=== PATIENT | male | born 1970 | race Caucasian/White ===

== ENCOUNTER → 2023-06-13 16:32 | Outpatient (CLI) | payer MEDICAID, SELFPAY ==
[2023-06-13 16:34] LABS: Alanine Aminotransferase 41 U/L (12-78); Albumin Level 4.5 g/dl (3.5-5.0); Albumin/Globulin Ratio 1.3 (1.1-1.8); Alkaline Phosphatase 128 U/L (38-126); Anion Gap 15.2 mEq/L (5-15); Aspartate Amino Transferase 36 U/L (17-59); Bilirubin,Total 0.5 mg/dl (0.2-1.3); Blood Urea Nitrogen 11 mg/dl (9-20); Calcium 9.7 mg/dl (8.4-10.2); Carbon Dioxide 23 mmol/L (22.0-30.0); Chloride 105 mmol/L (98-107); Chol/HDL Ratio 8.2 (1-3.5); Cholesterol 247 mg/dl (140-200); Estimated Glomerular Filt Rate 100 ml/min (>60); GFR (African American) 121 ML/MIN (>60); Globulin 3.5 g/dL (1.3-3.2); Glucose 113 mg/dl (74-100); HDL Cholesterol 30 mg/dl (40-60); Potassium 4.2 mmoL/L (3.5-5.1); Sodium 139 mmol/L (136-145); Triglycerides 370 mg/dl (30-150); VLDL Cholesterol 74 mg/dL (0-40)
[2023-06-13 16:37] LABS: Basophils # 0.1 K/mm3 (0-0.2); Basophils % 0.5 % (0.1-2.0); Eosinophils # 0.2 K/mm3 (0.0-0.4); Hematocrit 51.5 % (42.0-52.0); Lymphocytes # 2.8 K/mm3 (0.7-4.5); Lymphocytes % 28.9 % (10-50); Mean Corpuscular HGB Conc 35.3 g/dL (31.8-35.4); Mean Corpuscular Hemoglobin 33.2 pg (27.0-31.2); Mean Corpuscular Volume 94.1 fl (80-94); Mean Platelet Volume 9.6 fl (7.4-10.4); Monocytes # 0.3 K/mm3 (0.1-1.0); Monocytes % 3.6 % (1.7-9.3); Neutrophils # 6.2 K/mm3 (1.8-7.8); Platelet Count 238 K/mm3 (142-424); Red Blood Count 5.48 M/mm3 (4.60-6.20); Red Cell Distribution Width 12.9 % (11.5-17.5); White Blood Count 9.5 K/mm3 (4.8-10.8)
[2023-06-13 16:45] LABS: Direct LDL Cholesterol 142.11 mg/dL (100-129)
[2023-06-13 16:51] LABS: Hemoglobin 18.2 g/dL (14.1-18.0)
[2023-06-13 17:05] LABS: Thyroid Stimulating Hormone 0.86 uIU/mL (0.465-4.68)
== END ==
PROVIDERS: PCP Family Medicine; Visit Provider Family Medicine
DX: Z00.00 Encounter for general adult medical examination without abnormal findings (principal)
CPT/HCPCS: 80053; 80061; 84443; 85025

== ENCOUNTER → 2023-06-23 13:56 | Outpatient (CLI) | payer MEDICAID, SELFPAY ==
--- NOTE | 2023-06-23 13:57 | CA_ITS ---
FINAL REPORT CLINICAL HISTORY: diminished pulses in legs; leg pain,smoker COMPARISON: None FINDINGS: BILATERAL LOWER EXTREMITY DUPLEX DOPPLER Color Doppler and duplex Doppler of the bilateral lower extremity was performed. Spectral analysis was also performed. Velocities were measured at multiple levels. All velocities are in centimeters per second. RIGHT EMAIL MARKETING COORDINATOR: 137 Prof A: 51 Fem A Prox: 87 Fem A Mid: 91 Fem A Dist: 84 Pop A: 69 FIRST COAT OPERATOR Prox: Not obtained FIRST COAT OPERATOR Mid: Not obtained FIRST COAT OPERATOR Dist: 88 [place] Mid: 53 Per A Mid: 51 Waveforms are triphasic and biphasic LEFT EMAIL MARKETING COORDINATOR: 93 Prof A: 55 Fem A Prox: 94 Fem A Mid: 89 Fem A Dist: 91 Pop A: 60 FIRST COAT OPERATOR Prox: 87 FIRST COAT OPERATOR Mid: 96 FIRST COAT OPERATOR Dist: 107 [place] Mid: 51 Per A Mid: 67 Waveforms are triphasic. IMPRESSION: No evidence of significant vascular disease. Reviewed, Interpreted and Dictated by Ricky Adams III, MD Transcribed by Kena Flower Authenticated and [facility]
== END ==
PROVIDERS: PCP Family Medicine; Visit Provider Family Medicine
DX: I73.89 Other specified peripheral vascular diseases (principal); R09.89 Other specified symptoms and signs involving the circulatory and respiratory systems
CPT/HCPCS: 93925

== ENCOUNTER 2024-09-23 16:21 | Emergency (ER) | payer MEDICAID, SELFPAY ==
[2024-09-23] VITALS (14 sets, daily range): BP systolic 113–162; BP diastolic 72–85; PULSE 74–106; RESP 16–28; TEMP 36.6–37.8; O2SAT 87–93; BMI 31.1
[2024-09-23 16:43] LABS: Coronavirus 19, PCR Not Detected (NotDetected); Influenza B, PCR Not Detected (NotDetected)
--- NOTE | 2024-09-23 16:47 | PC.NURSE ---
Dr. Borges at BS for pt eval
--- NOTE | 2024-09-23 16:55 | XR_ITS ---
PROCEDURE INFORMATION: Exam: XR Chest Exam date and time: 09/23/2024 4:56 PM Age: 54 years old Clinical indication: Cough; Additional info: SOA cough, fever TECHNIQUE: Imaging protocol: Radiologic exam of the chest. Views: 2 views. COMPARISON: No relevant prior studies available. FINDINGS: Lungs: Mild linear and patchy opacities at both lung bases. Pleural spaces: Normal. No pleural effusion. No pneumothorax. Heart/Mediastinum: Normal. No cardiomegaly. Bones/joints: Unremarkable. IMPRESSION: Mild linear and patchy opacities at both lung bases could be secondary to atelectasis or pneumonia.
[2024-09-23 17:04] LABS: Lactate Venous 1.9 mmol/L (0.4-2.0); VBG Base Excess -2.5 mmol/L (-2.4-2.3); VBG HCO3 21.8 mmol/L (23-30); VBG Oxygen Saturation 82.6 % (50-70); VBG PCO2 33.6 mmol/L (35-51); VBG PH 7.43 mmol/L (7.31-7.41); VBG PO2 44.6 mmol/L (28-40); VBG Total CO2 22.8 mmol/L (23-27)
[2024-09-23 17:06] LABS: Basophils % 0.1 % (0.1-2.0); Hematocrit 44.2 % (42.0-52.0); Hemoglobin 15.5 g/dL (14.1-18.0); Lymphocytes # 0.7 K/mm3 (0.7-4.5); Lymphocytes % 9.9 % (10-50); Mean Corpuscular HGB Conc 35.1 g/dL (31.8-35.4); Mean Corpuscular Hemoglobin 32.3 pg (27.0-31.2); Mean Corpuscular Volume 92.1 fl (80-94); Mean Platelet Volume 10.8 fl (7.4-10.4); Monocytes # 0.3 K/mm3 (0.1-1.0); Monocytes % 4.8 % (1.7-9.3); Neutrophils # 5.7 K/mm3 (1.8-7.8); Neutrophils % 84.8 % (37.0-80.0); Platelet Count 84 K/mm3 (142-424); Red Cell Distribution Width 12.9 % (11.5-17.5); White Blood Count 6.7 K/mm3 (4.8-10.8)
--- NOTE | 2024-09-23 17:08 | ED_ITS ---
Discharge Plan Disposition Patient Disposition: Home, Self-Care Condition: Good Prescriptions Prescriptions: New prednisone 20 mg tablet 40 mg PO DAILY 5 Days Qty: 10 0RF amoxicillin-pot clavulanate 875-125 mg tablet 1 tab PO BID 5 Days Qty: 10 0RF azithromycin 500 mg tablet 500 mg PO DAILY 2 Days Qty: 2 0RF Rx Instructions: start on day 2 of therapy nicotine 21 mg/24 hr patch 24 hour 1 patch transdermal DAILY Qty: 28 2RF (DME) supplemental oxygen See Rx Instructions .Route .MEDSUPPLY Qty: 1 0RF Rx Instructions: 2 L nasal cannula continuous oxygen at all times while awake and while sleeping. To maintain oxygen saturation 88% or greater. No Action omega 9-rnd-ocu-fish oil [Fish Oil] 60-90-500 mg capsule 1 cap PO DAILY rosuvastatin 10 mg tablet 10 mg PO DAILY Qty: 30 2RF Referrals Follow up/Referrals: Ziggy Lopez MD [Primary Care Provider] - See instructions Activity Restrictions/Add. Instructions Additional Instructions/Restrictions: Call your family doctor to establish care for this visit to the emergency department and schedule follow-up within 48 hours to ensure improvement. If you have any worsening of your condition or any other concerning signs or symptoms, return to the emergency department or your primary care doctor for further evaluation. Azithromycin once daily for the next 2 days. Augmentin twice daily for the next 5 days. Prednisone each morning for the next 5 days. Clinical Impressions Clinical Impression: Acute exacerbation of chronic obstructive pulmonary disease, Influenza A, Pneumonia Print Language Print Language: Syriac Discharge ED Provider: Pito Borges General Adult HPI General Chief complaint: Upper Respiratory Infection Stated complaint: DIFFICULTY BREATHING Time Seen by Provider: 09/23/24 16:34 Mode of Arrival: EMS Source of Information: Patient Limitations: No Limitations Description of Symptoms (Recalled from ER Triage Doc. by RN): pt states he has been sick x2wks after being exposed to the flu. pt c/o a productive cough with yellow sputum, N/V/D, chilling, sweating, SOA, QUILES, lower back pain, and fever. pt states the lower back pain is sore and 1/10. pt states his QUILES is 3/10 and sharp and shooting. pt was at his PCP when his oxygen saturation dropped and EMS was called. on arrival pt was 87% on RA. After placing pt on 3L NC he is 92%. pt denies urinary symptoms, chest pain or abd pain. History of Present Illness HPI narrative: Please note that above description of symptoms, in this electronic medical record under categorization of recalled from ER triage doctor by RN are reflective of an initial nursing assessment, however, is not reflective of my full history and physical exam that was personally taken and clarified. Consequentially, this preceding description of symptoms, which may include the patient's categorized chief complaint in the EMR, do not reflect my personal clinical impression, and the ultimate description of history of present illness and patient stated complaints should be deferred to this section of the note. Unless stated otherwise or congruent with this section of the note, additional signs, symptoms, or incongruence should be interpreted as inaccurate with my clinical impression. Related Data Home Medications ?Medication ?Instructions ?Recorded ?Confirmed omega 8-sba-xiu-fish oil 60 mg-90 1 cap PO DAILY 06/13/23 09/23/24 mg-500 mg capsule (Fish Oil) Previous Rx's ?Medication ?Instructions ?Recorded rosuvastatin 10 mg tablet 10 mg PO DAILY #30 tabs 07/30/23 amoxicillin 875 mg-potassium 1 tab PO BID 5 days #10 tabs 09/23/24 clavulanate 125 mg tablet azithromycin 500 mg tablet 500 mg PO DAILY 2 days #2 tabs 09/23/24 nicotine 21 mg/24 hr daily 1 patch transdermal DAILY #28 ea 09/23/24 transdermal patch prednisone 20 mg tablet 40 mg (2 x 20 mg) PO DAILY 5 days 09/23/24 #10 tabs supplemental oxygen #1 ea 09/23/24 Allergies Allergy/AdvReac Type Severity Reaction Status Date / Time No Known Allergies Allergy Verified 09/23/24 14:50 [facility] Disclaimer: The information contained in this section may have been updated after the patient was seen, as this information can be updated by other users. Medical History Heart attack Asthma Surgical History Hx of cardiac cath Family History Grandfather Heart attack Social History (Reviewed 09/23/24 @ 14:50 by MICHAEL Martinez Smoking Status: Current every day smoker alcohol intake: never substance use type: denies use current occupational status: disabled Travel in the last 8 weeks: None household members: spouse and family housing: house Have you lived/traveled outside US in past 30 days?: No Contact w/someone who lives/traveled outside US past 30 days?: No Exposure to someone with infectious disease in past 14 days?: No Do you have a fever (greater than 100.4 F or 38 C)?: No Have you tested positive for COVID-19: No Exposed to someone with COVID-19 in past 14 days?: No Do you have a sore throat?: No Do you have a cough?: No Do you have any weakness?: No Do you have any diarrhea?: No Are you experiencing any unusual bleeding?: No Do you have any muscle aches/pain?: No Do you have any abdominal pain?: No Are you experiencing loss of taste or smell?: No ROS Obtained: Yes All systems reviewed & no additional complaints except as documented Physical Exam General General appearance: alert and in no apparent distress Head Head exam: atraumatic and normocephalic Eye Eye exam: Present normal appearance, PERRL and EOMI Neck Neck exam: Present trachea midline Chest Chest inspection: Present normal inspection and symmetric chest wall rise Respiratory Respiratory exam: Present wheezes and prolonged expiratory phase; Absent respiratory distress, stridor or accessory muscle use Cardiovascular Cardiovascular exam: Present normal rhythm, tachycardia and other (Pulses equal and symmetric in upper and lower extremities) Abdominal Exam Abdominal exam: Present soft; Absent distention, tenderness or pulsatile mass Extremities Exam Extremities exam: Absent edema Neurological Exam Neurological exam: Present alert, oriented X3, CN II-XII intact and normal gait Skin Skin exam: Present warm and dry; Absent cyanosis, diaphoresis or pallor Medical Decision Making Medical Records Medical records reviewed: Yes I reviewed the patient's medical records. Screening: Per USPSTF and CDC recommendations, given the prevalence of disease in our region, it is our hospital?s policy to screen for HIV and viral Hepatitis for all patients aged 18 and over and those with ongoing risk factors. Cuong Inquiry Pt receiving controlled substance: No Cuong was queried for this patient: No Vital Signs: 09/23/24 16:22 09/23/24 17:00 09/23/24 17:30 Temperature 100.1 F H Temperature Source Oral Pulse Rate 100 H 98 H Pulse Rate [Left] 105 H Respiratory Rate 28 H 23 23 Blood Pressure 150/79 H 134/73 Blood Pressure [Right Arm] 146/75 H Blood Pressure Mean [Right Arm] 98 Blood Pressure Source Blood Pressure Source [Right Arm] Automatic Cuff Blood Pressure Position Blood Pressure Position [Right Arm] Sitting 02 Sat by Pulse Oximetry 87 L 92 L 91 L Oxygen Delivery Method Room Air Nasal Cannula Nasal Cannula Oxygen Flow Rate (LPM) 3 09/23/24 18:03 09/23/24 18:30 09/23/24 19:00 Temperature Temperature Source Pulse Rate 104 H 106 H 105 H Pulse Rate [Left] Respiratory Rate 20 16 Blood Pressure 162/85 H 154/81 H 123/74 Blood Pressure [Right Arm] Blood Pressure Mean [Right Arm] Blood Pressure Source Blood Pressure Source [Right Arm] Blood Pressure Position Blood Pressure Position [Right Arm] 02 Sat by Pulse Oximetry 93 L 93 L 92 L Oxygen Delivery Method Nasal Cannula Nasal Cannula Oxygen Flow Rate (LPM) 09/23/24 19:30 09/23/24 20:00 09/23/24 20:30 Temperature Temperature Source Pulse Rate 102 H 96 H 94 H Pulse Rate [Left] Respiratory Rate Blood Pressure 136/75 121/73 113/77 Blood Pressure [Right Arm] Blood Pressure Mean [Right Arm] Blood Pressure Source Blood Pressure Source [Right Arm] Blood Pressure Position Blood Pressure Position [Right Arm] 02 Sat by Pulse Oximetry 90 L 88 L 90 L Oxygen Delivery Method Oxygen Flow Rate (LPM) 09/23/24 20:45 09/23/24 21:00 09/23/24 21:15 Temperature Temperature Source Pulse Rate 92 H 90 92 H Pulse Rate [Left] Respiratory Rate Blood Pressure 128/77 Blood Pressure [Right Arm] Blood Pressure Mean [Right Arm] Blood Pressure Source Blood Pressure Source [Right Arm] Blood Pressure Position Blood Pressure Position [Right Arm] 02 Sat by Pulse Oximetry 89 L 89 L 87 L Oxygen Delivery Method Oxygen Flow Rate (LPM) 09/23/24 21:30 09/23/24 22:14 Temperature 97.9 F Temperature Source Oral Pulse Rate 91 H 74 Pulse Rate [Left] Respiratory Rate 16 Blood Pressure 117/75 118/72 Blood Pressure [Right Arm] Blood Pressure Mean [Right Arm] Blood Pressure Source Automatic Cuff Blood Pressure Source [Right Arm] Blood Pressure Position Supine Blood Pressure Position [Right Arm] 02 Sat by Pulse Oximetry 90 L Oxygen Delivery Method Room Air Oxygen Flow Rate (LPM) Lab Data Lab Results 09/23/24 16:25: SARS-CoV-2 (PCR) Not detected, Influenza A Untype (PCR) Detected A, Influenza Type B (PCR) Not detected 09/23/24 16:48: WBC 6.7, RBC 4.80, Hgb 15.5, Hct 44.2, MCV 92.1, MCH 32.3 H, MCHC 35.1, RDW 12.9, Plt Count 84 L, MPV 10.8 H, Neut % (Auto) 84.8 H, Lymph % (Auto) 9.9 L, Lawrence % (Auto) 4.8, Eos % (Auto) 0.0 L, Baso % (Auto) 0.1, Neut # (Auto) 5.7, Lymph # (Auto) 0.7, Lawrence # (Auto) 0.3, Eos # (Auto) 0.0, Baso # (Auto) 0.0, PT 9.6, INR 0.86 L, APTT 31.8 H, Sodium 134 L, Potassium 3.4 L, C hloride 97 L, Carbon Dioxide 26, Anion Gap 14.4, BUN 19, Creatinine 1.10, Estimated Creat Clear 99, Estimated GFR 69, Est GFR ( Amer) 84, Glucose 154 H, Calcium 8.7, Total Bilirubin 0.8, AST 62 H, ALT 37, Alkaline Phosphatase 95, Troponin I 0.04 H, NT-Pro-B Natriuret Pep 71.1, Total Protein 7.0, Albumin 3.7, Globulin 3.3 H, Albumin/Globulin Ratio 1.1, HCV Ab MICHAEL w/Rflx PCR Qn Negative, HIV Ag/Ab Combo Qual Negative 09/23/24 16:57: VBG pH 7.43 H, VBG pCO2 33.6 L, VBG pO2 44.6 H, VBG HCO3 21.8 L, VBG Total CO2 22.8 L, VBG O2 Saturation 82.6 H, VBG Base Excess -2.5 L, VBG Lactic Acid 1.9 09/23/24 17:24: Lactate 2.2 H 09/23/24 19:52: Troponin I 0.04 H 09/23/24 16:48 09/23/24 16:48 Orders (Tests/Meds): ED MEDICATIONS Discontinued Medications Generic Name Dose Route Start Last Admin Trade Name Bibiana PRN Reason Stop Dose Admin Albuterol/Ipratropium 9 ml 09/23/24 16:54 09/23/24 17:39 Ipratropium/Albuterol 3 Ml Neb IH 09/23/24 16:55 9 ml ONCE ONE Administration Sodium Chloride 1,000 mls @ 999 mls/hr 09/23/24 16:54 09/23/24 17:38 Sod Chlor 0.9% 1000ml Bag IV 09/23/24 17:54 999 mls/hr .Q1H1M ONE Administration Magnesium Sulfate 2 gm in 50 mls @ 50 mls/hr 09/23/24 16:54 09/23/24 17:39 Magnesium Sulfate 2gm/50ml Premix IV 09/23/24 17:53 50 mls/hr ONCE ONE Administration Ceftriaxone Sodium 2 gm/ 100 mls @ 200 mls/hr 09/23/24 16:57 09/23/24 17:35 Sodium Chloride IV 09/23/24 17:26 200 mls/hr ONCE ONE Administration Azithromycin 500 mg/ Sodium 250 mls @ 250 mls/hr 09/23/24 16:57 09/23/24 18:00 Chloride IV 09/23/24 16:58 250 mls/hr ONCE ONE Administration Methylprednisolone Sodium Succinate 125 mg 09/23/24 16:54 09/23/24 17:39 Methylprednisolone Sod Succ 125mg Vial IV 09/23/24 16:55 125 mg ONCE ONE Administration Nicotine 21 mg 09/23/24 21:30 09/23/24 22:02 Nicotine 21mg/24hr Patch TD 09/23/24 21:31 21 mg ONCE ONE Administration ORDERS Category Date Time Status CXR 2 view (NOT portable) [XR chest 2V] Stat Exams 09/23/24 16:55 Completed Complete Blood Count Auto Diff Stat Lab 09/23/24 16:48 Completed Comprehensive Metabolic Panel Stat Lab 09/23/24 16:48 Completed HIV Combo Stat Lab 09/23/24 16:48 Completed Hepatitis C Ab Qual. W/ RFX Stat Lab 09/23/24 16:48 Completed Lactic Acid Stat Lab 09/23/24 17:24 Completed NT Pro Brain Natriuretic Pep. Stat Lab 09/23/24 16:48 Completed PT INR [Prothrombin Time INR] Stat Lab 09/23/24 16:48 Completed PTT [Activated Partial Thrombo Time] Stat Lab 09/23/24 16:48 Completed Rapid PCR Covid and Flu A/B Stat Lab 09/23/24 16:25 Completed Troponin I Q3H Lab 09/23/24 19:52 Completed Troponin I Stat Lab 09/23/24 16:48 Completed Blood Culture Stat Micro 09/23/24 17:28 Received Venous Blood Gas Stat RT 09/23/24 16:57 Completed Medical Decision Narrative: 54-year-old male history of longstanding smoking history, likely COPD undiagnosed, hypertension, hyperlipidemia presenting with shortness of breath. Patient states his symptoms been getting worse for the past 2 weeks. Having fevers for about the last week and a half. Cough was initially nonproductive, now is productive of green and yellow sputum. Fevers are daily at this point. Patient was sent over by primary care because at office visit today, his oxygen was low. Came in for further evaluation. History was obtained via conversation with patient, EMS, primary care provider. On arrival, patient hemodynamically stable, alert, oriented x4, appropriate, GCS 15, moving all extremities spontaneously, pupils equal and reactive to light. Full physical exam performed and significant for well-appearing male who is in no significant respiratory distress. He speaking in full sentences, but does have mild tachypnea and prolonged expiratory phase with bilateral expiratory wheezes. He does have inspiratory wheezes on the right posterior/inferior lung quintana. 2 L nasal cannula in place to saturate greater than 90%. Differential includes COPD exacerbation, pneumonia, bronchitis, PE, pneumothorax, CHF, among others. Patient placed on continuous cardiac monitoring and continuous pulse ox with initial blood pressure 146/75, heart rate 105, saturation 87% on room air, 95% on 2 L. Independent interpretation of EKG shows sinus tachycardia 100 bpm ventricular rate left axis deviation. No ST or T wave changes concerning for acute ischemia. MD 128, QRS 105, QTc 376. Patient was given 1 L normal saline, azithromycin, ceftriaxone, DuoNebs, magnesium, Solu-Medrol for symptomatic management and correction of underlying abnormalities initially. Workup independently interpreted and significant for normal white blood cell count, new thrombocytopenia 84,000 with no baseline with which to compare. Hemoglobin also normal at 15.5. Patient's coags normal. VBG with mild metabolic acidosis with respiratory compensation. Chemistry with mild hyponatremia, repleted with fluids. Hypokalemia, this repleted p.o. Lactate 2.2, troponin mildly elevated at 0.04. Influenza positive. On independent interpretation of imaging, patient has bilateral pneumonia. See radiology read for full review of final results. Heart score. Patient was placed in observation beginning at 5 PM in order to rule out evolving IL with delta troponin, give medications and screen for improvement and determine need for admission versus home-going. The patient was provided meds, cardiac and continuous pulse oximetry monitoring while awaiting results. Independent interpretation of results demonstrated stable troponin at 0.04. On reevaluation, patient states that he is feeling much better, lungs are much improved and no increased work of breathing. At this time, I feel patient is appropriate for discharge. Total observation time 5 hours. I do not feel full sepsis fluid boluses necessary at this time, since patient's tachycardia improved and repeat evaluation patient looks much more clinically well. Troponin elevation likely secondary to mild hypoxemia, tachycardia, dehydration. Because patient continues to become mildly hypoxemic, generally sitting right at 88, but with any exertion (even including talking) dropping to mid 80%'s, Theresa was contacted for home oxygen until following up. Patient states that he is able to stay home for the next 2 to 3 days, so portable oxygen concentrator able to be provided. Regarding social determinants of health, patient states that he is contemplative in terms of smoking cessation, about 10 minutes were spent discussing this and patient agreeable to trying patches to go home with in order to prevent him from smoking any further. Given patient presentation, workup, history, this most likely represents COPD exacerbation in the setting of pneumonia with hypoxemia. Because patient at baseline without signs or symptoms of clinical decompensation, deemed appropriate for discharge. Results were relayed to patient who voiced understanding and were agreeable to outpatient management and follow up. I discussed my clinical impression with patient and answered all questions. At this time, the evidence for any other entities in the differential is insufficient to warrant any further testing or ED observation. This was explained as well. Advisory was given that persistent or worsening symptoms require further evaluation. I confirmed the understanding of this discussion. Reciprocating Drill Operator disclaimer Much of this encounter note is an electronic calculation reviewer spoken language to printed text. Electronic calculation reviewer of the spoken language may permit errors. Although I have reviewed the note, some errors may still exist. Procedures Smoking Cessation Time Spent Discussing Smoking Cessation w/Patient (min): 10 Patient Acknowledges Need for Cessation: Yes Additional Comments: Agreeable to patches Critical Care Critical Care Time Critical Care Time: No
[2024-09-23 17:10] LABS: Influenza A, PCR Detected (NotDetected)
[2024-09-23 17:13] LABS: INR 0.86 (0.9-1.1); Prothrombin Time 9.6 seconds (9.2-12.1)
[2024-09-23 17:17] LABS: Chloride 97 mmol/L (98-107)
[2024-09-23 17:18] LABS: Albumin Level 3.7 g/dl (3.5-5.0); Potassium 3.4 mmoL/L (3.5-5.1); Sodium 134 mmol/L (136-145)
[2024-09-23 17:20] LABS: Alanine Aminotransferase 37 U/L (12-78); Anion Gap 14.4 mEq/L (5-15); Aspartate Amino Transferase 62 U/L (17-59); Blood Urea Nitrogen 19 mg/dl (9-20); Carbon Dioxide 26 mmol/L (22.0-30.0); Creatinine Clearance Estimated 99 mL/min (50-200); Estimated Glomerular Filt Rate 69 ml/min (>60); GFR (African American) 84 ML/MIN (>60)
--- NOTE | 2024-09-23 17:20 | ECG_ITS ---
APPROVED REPORT Exam: Resting ECG HR:100 bpm ECG Measurements Heart Rate 100 AXES VA 128 P 42 QRSd 105 QRS -59 QT 319 T 55 QTc 376 Conclusion SINUS TACHYCARDIA PATTERN CONSISTENT WITH PULMONARY DISEASE LEFT ANTERIOR FASCICULAR BLOCK [QRS AXIS <= -45, QR IN I, RS IN II] ABNORMAL ECG Electronically signed by : LEN BOWIE, 09/27/2024 22:16:48
[2024-09-23 17:21] LABS: Albumin/Globulin Ratio 1.1 (1.1-1.8); Alkaline Phosphatase 95 U/L (38-126); Bilirubin,Total 0.8 mg/dl (0.2-1.3); Calcium 8.7 mg/dl (8.4-10.2); Globulin 3.3 g/dL (1.3-3.2); Glucose 154 mg/dl (74-100)
[2024-09-23 17:26] LABS: Activated Partial Thrombo Time 31.8 seconds (22.5-28.5)
[2024-09-23 17:33] LABS: Troponin I 0.04 ng/ml (0.00-0.034)
[2024-09-23] MEDS: CEFTRIAXONE SODIUM 2 GM in 0.9 % SODIUM CHLORIDE 100 ML IV (17:35)
[2024-09-23] MEDS: 0.9 % SODIUM CHLORIDE 1000ML 1,000 ML 999 ML IV (17:38)
[2024-09-23] MEDS: METHYLPREDNISOLONE SOD SUCC 125MG VIAL 125 MG IV (17:39)
[2024-09-23] MEDS: MAGNESIUM SULFATE IN WATER 2 GM/50 ML PIGGYBACK IV (17:39)
[2024-09-23] MEDS: IPRATROPIUM/ALBUTEROL 3 ML NEB 9 ML IH (17:39)
[2024-09-23 17:47] LABS: NT Pro Brain Natriuretic Pep. 71.1 pg/mL (0-125)
[2024-09-23 17:54] LABS: Lactic Acid 2.2 mmol/L (0.7-2.1)
[2024-09-23] MEDS: AZITHROMYCIN 500 MG in 0.9 % SODIUM CHLORIDE 250 ML 250 MG IV (18:00)
[2024-09-23 18:37] LABS: HIV Combo NEGATIVE (Negative)
[2024-09-23 18:44] LABS: Hepatitis C Ab Qual. W/ RFX NEGATIVE (Negative)
[2024-09-23 21:12] LABS: Troponin I 0.04 ng/ml (0.00-0.034)
[2024-09-23 21:29] LABS: Reflex Lactic Add Lactic Reflex
--- NOTE | 2024-09-23 21:40 | PC.NURSE ---
Contacted [facility] for at home oxygen for this patient, left a message on their utility bill collection clerk messaging system.
[2024-09-23] MEDS: NICOTINE 21MG/24HR PATCH 21 MG TD (22:02)
--- NOTE | 2024-09-23 22:14 | PC.NURSE ---
Patient is waiting on O2 to be delivered to hospital
--- NOTE | 2024-09-23 22:16 | PC.NURSE ---
IV removed. Catheter tip intact. Bleeding controlled.
== END 2024-09-23 22:30 | disposition home or self-care (01) ==
PROVIDERS: Emergency Provider Emergency Medicine; PCP Family Medicine
DX: J44.1 Chronic obstructive pulmonary disease with (acute) exacerbation (principal); J18.9 Pneumonia, unspecified organism; J10.1 Influenza due to other identified influenza virus with other respiratory manifestations; R06.02 Shortness of breath; R09.3 Abnormal sputum; R11.2 Nausea with vomiting, unspecified; R50.9 Fever, unspecified; R19.7 Diarrhea, unspecified; R51.9 Headache, unspecified; R61 Generalized hyperhidrosis; M54.50 Low back pain, unspecified; Z20.828 Contact with and (suspected) exposure to other viral communicable diseases
CPT/HCPCS: 71046; 80053; 82803; 83605; 83880; 84484; 85025; 85610; 85730; 86803; 87040; 87389; 87636; 93005; 96361; 96365; 96366; 96367; 96374; 96375; 99285; J0456; J0696; J2919; J3475; J7030; J7050; J7620

== ENCOUNTER 2025-04-27 12:18 | Outpatient (CLI) | payer MEDICAID, SELFPAY ==
--- NOTE | 2025-04-27 12:21 | XR_ITS ---
FINAL REPORT CLINICAL HISTORY: back and hip COMPARISON: None FINDINGS: LEFT HIP: Two views of the left hip with an AP pelvis view demonstrate no subluxation of fracture. There is inferior SI joint narrowing and sclerosis bilaterally. The left hip is located in the acetabulum. There is no joint space narrowing. The visualized bony structures are well aligned. No soft tissue abnormality is seen. IMPRESSION: No acute bony abnormality. Reviewed, Interpreted and Dictated by Geoffrey Hernandes MD Transcribed by Nadia Pruitt Authenticated and [facility]
--- NOTE | 2025-04-27 12:21 | XR_ITS ---
FINAL REPORT CLINICAL HISTORY: low back pain and hip pain COMPARISON: None FINDINGS: 3 views of the lumbar spine were obtained. There is no evidence of fracture. There is straightening of the normal lumbar curvature. There is L3-L4 disc space narrowing with endplate destruction and sclerosis, which is age-indeterminate. These findings are concerning for osteomyelitis. There are vascular calcifications of the aorta. No paraspinous soft tissue abnormalities identified. IMPRESSION: Normal alignment with L3-L4 endplate destructive changes concerning for osteomyelitis. Recommend MRI for further evaluation. Reviewed, Interpreted and Dictated by Geoffrey Hernandes MD Transcribed by Nadia Pruitt Authenticated and [facility]
--- NOTE | 2025-04-27 12:21 | XR_ITS ---
FINAL REPORT CLINICAL HISTORY: back and hip pain COMPARISON: None FINDINGS: RIGHT HIP Two views of the right hip demonstrate no subluxation or fracture. The hip is located in the acetabulum. There are degenerative changes of the right SI joint. There is calcification adjacent to the inferior right greater trochanter. No soft tissue abnormality is seen. IMPRESSION: Degenerative changes without dislocation or fracture. Reviewed, Interpreted and Dictated by Geoffrey Hernandes MD Transcribed by Nadia Pruitt Authenticated and [facility]
--- OUTSIDE RECORDS SUMMARY | 2025-04-27 12:21 | XMS_ITS | Clinical Summary ---
Author Organization [facility] Address [address] [place] [address] Phone Care Team Providers Care Pig Caster Name Role Phone Unavailable Primary Care Provider Unavailabl e Allergies No known active allergies Medications naproxen (NAPROSYN) 500 mg Oral Tablet Take 1 Tab by mouth every 12 hours. 20 Tab 10/03/2017 Active Medical History Medical History Date Comments [facility]) High cholesterol Social History Tobacco Use Types Packs/Day Years Used Date Smoking Tobacco: Every Day Cigarettes Smokeless Tobacco: Never Alcohol Use Standard Drinks/Week Comments No 0 (1 standard drink = 0.6 oz pur e alcohol) Sex and Gender Information Value Date Recorded Sex Assigned at Not on file Legal Sex Male 8:59 AM EST Gender Identity Not on file Sexual Orientation Not on file Obstetrics History Last Filed Vital Signs Vital Sign Reading Time Taken Comments Blood Pressure 140/79 10/03/2017 11:01 AM EST Pulse 85 10/03/2017 11:27 AM EST Temperature 36.1 C (97 F) 10/03/2017 9:05 AM EST Respiratory Rate 19 10/03/2017 11:27 AM EST Oxygen Saturation 96% 10/03/2017 11:27 AM EST Inhaled Oxygen Concentration - - Weight 99.8 kg (220 lb) 10/03/2017 9:05 AM EST Height 172.7 cm (5' 8 ) 10/03/2017 9:05 AM EST Body Mass Index 33.45 10/03/2017 9:05 AM EST Plan of Treatment Health Maintenance Due Date Last Done Comments Annual Wellness Exam 02/15/1971 DTaP/TDaP/Td (1 - Tdap) 02/15/1987 Hepatitis B Vaccine (1 of 3 - 19+ 3-dose series) 02/15/1987 Cologuard 02/15/2013 Colon Cancer Screening 02/15/2013 Colonoscopy 02/15/2013 FIT 02/15/2013 Sigmoidoscopy 02/15/2013 Virtual Colonography 02/15/2013 Pneumococcal Vaccine 50+ (1 of 1 - PCV) 02/15/2018 Zoster (1 of 2) 02/15/2018 COVID-19 Vaccine (1 - 2023-2 5 season) 2024 Influenza Vaccine (#1) 2025 Meningococcal B Vaccine Aged Out No l onger eligible based on patient's age to complete this topic Insurance [employer]ANCE AA
== END 2025-04-27 23:59 | disposition home or self-care (01) ==
LOC: RAD 12:19
PROVIDERS: PCP Family Medicine; Visit Provider Family Medicine
DX: M16.11 Unilateral primary osteoarthritis, right hip (principal); M54.50 Low back pain, unspecified; R93.7 Abnormal findings on diagnostic imaging of other parts of musculoskeletal system
CPT/HCPCS: 72100; 73502

== ENCOUNTER 2025-05-18 07:36 | Outpatient (CLI) | payer MEDICAID, SELFPAY ==
--- OUTSIDE RECORDS SUMMARY | 2025-05-18 07:38 | XMS_ITS | Clinical Summary ---
Author Organization [facility] Address [address] [place] [address] Phone Care Team Providers Care Air Pumper Name Role Phone Unavailable Primary Care Provider Unavailabl e Allergies No known active allergies Medications naproxen (NAPROSYN) 500 mg Oral Tablet Take 1 Tab by mouth every 12 hours. 20 Tab 10/03/2017 Active Medical History Medical History Date Comments [place] (myocardial infarction) (HCC) High cholesterol Social History [...] COVID-19 Vaccine (1 - 2023-2 5 season) 2025 Influenza Vaccine (#1) 2025 Meningococcal B Vaccine Aged Out No l onger eligible based on patient's age to complete this topic Insurance 5o9 [employer]URANCE AA
--- NOTE | 2025-05-18 08:00 | MR_ITS ---
FINAL REPORT TECHNIQUE: Multiplanar MR without gadolinium enhancement CLINICAL HISTORY: possible osteomyelitis. RIGHT SIDED LOW BACK PAIN. NO INJURY OR TRAUMA. COMPARISON: None FINDINGS: Sagittal images show normal vertebral height. Alignment is normal. There is extensive bone marrow edema and marrow replacement involving the L3 and L4 vertebra, extending into the pedicles bilaterally. There is endplate irregularity with erosions, and complex fluid within the L3-4 disc. Mild soft tissue edema is present in the paraspinal soft tissues. The overall appearance is most consistent with osteomyelitis and discitis. No obvious epidural abscess is identified. T12-L1: Unremarkable L1-2: Unremarkable L2-3: Unremarkable L3-4: There is a moderate annular disc bulge, compression of the thecal sac with moderate canal stenosis, and no obvious epidural abscess. Disc and phlegmon contributes to moderate to severe bilateral neural foraminal narrowing. L4-5: A mild annular disc bulge is present without evidence of canal stenosis. L5-S1: A minimal annular bulge is present with mild facet arthropathy. IMPRESSION: 1. Findings suspicious for severe discitis and osteomyelitis at the L3-4 level, without epidural abscess. Reviewed, Interpreted and Dictated by Dinah Villarreal MD Transcribed by Hazel Lackey Authenticated and [facility][1]
== END 2025-05-18 23:59 | disposition home or self-care (01) ==
LOC: RAD 07:36
PROVIDERS: Visit Provider Family Medicine
DX: M54.9 Dorsalgia, unspecified (principal); R93.7 Abnormal findings on diagnostic imaging of other parts of musculoskeletal system
CPT/HCPCS: 72148

== ENCOUNTER 2025-06-14 14:40 | Outpatient (CLI) | payer MEDICAID, SELFPAY ==
--- NOTE | 2025-06-14 14:42 | CT_ITS ---
FINAL REPORT TECHNIQUE: Axial imaging of the lumbar spine was obtained without contrast. Reformatted images were also obtained and reviewed.This study was performed with techniques to keep radiation doses as low as reasonably achievable, (ALARA). Individualized dose reduction techniques using automated exposure control or adjustment of mA and/or kV according to the patient's size were employed. CLINICAL HISTORY: CHRONIC SYLVAIN LBP W/OUT SCIATICA FINDINGS: No fracture is identified. There are destructive changes of the inferior endplate of L3 and superior endplate of L4 with disc space narrowing. Remaining vertebral body heights are preserved. There is abnormal paraspinal soft tissue at the level of L3-4, phlegmonous material is a concern. There are multiple small retroperitoneal lymph nodes which are likely reactive. Remaining soft tissues are without acute abnormality. IMPRESSION: Findings concerning for osteomyelitis/discitis at L3-4. Recommend MRI with and without contrast. Reviewed, Interpreted and Dictated by Leeann Mathis MD Transcribed by Ale Still Authenticated and . [facility]
== END 2025-06-14 23:59 | disposition home or self-care (01) ==
LOC: RAD 14:41
PROVIDERS: PCP Family Medicine; Visit Provider Neurological Surgery
DX: M54.50 Low back pain, unspecified (principal); G89.29 Other chronic pain; R93.7 Abnormal findings on diagnostic imaging of other parts of musculoskeletal system
CPT/HCPCS: 72131

== ENCOUNTER 2025-06-16 09:53 | Outpatient (CLI) | payer MEDICAID, SELFPAY ==
--- OUTSIDE RECORDS SUMMARY | 2025-06-09 11:15 | XMS_ITS | Encounter Summary ---
[facility] Organization [facility] Address [address] [place] [id number] Care Team Providers Care Automotive Fuel Injection Servicer Name Role Phone Ziggy Lopez MD Primary Care Provider [phone]- [phone] Reason for Referral * Consultation (Urgent) - Pending Review Specialty Diagnoses / Procedures Referred By Contac t Referred To Contact Diagnoses Discitis of lumbar region Procedures CA OFFICE/OUTPATIENT NEW MODERATE MDM 45 MINUTES Bill Randhawa MD [address] [facility] [address] [place] [address] Phone: tel: fax: Miguel Moreno II, MD [address] [facility] [address] [place] [address] Phone: tel: fax: Referral ID Status Reason Start Date Expiration Date Visits Requested Visits Authorized [id number] Pending Review Specialty Services Required 06/09/2025 09/08/2026 1 1 * Diagnostic Imaging (Routine) - Authorized Specialty Diagnoses / Procedures Referred By Contac t Referred To Contact Diagnoses Chronic bilateral low back pain without sciatica Procedures XR Spine Lumbar Complete With Flex & Ext Bill Randhawa MD [address] [facility] [address] [place] [address] Phone: tel: fax: [facility] [address] [place] [address] Phone: tel: fax: Referral ID Status Reason Start Date Expiration Date V isits Requested Visits Authorized [id number] Authorized 06/09/2025 09/08/2026 1 1 * MRI/CAT/PET Scan (Emergency) - Closed Specialty Diagnoses / Procedures Referred By Contac t Referred To Contact Diagnoses Chronic bilateral low back pain without sciatica Procedures CT Lumbar Spine Without Contrast Bill Randhawa MD [address] [place] [address] Phone: tel: fax: [facility] [address] [address] Phone: tel: fax:[phone] Referral ID Status Reason Start Date Expiration Date Visits Re quested Visits Authorized [id number] Closed 06/09/2025 09/08/2026 1 1 * MRI/CAT/PET Scan (Emergency) - Closed Specialty Diagnoses / Procedures Referred By Contac t Referred To Contact Diagnoses Chronic bilateral low back pain without sciatica Procedures MRI Lumbar Spine With & Without Contrast Bill Randhawa MD [address] [place] [address] Phone: tel: fax: [facility] [address] [place] [phone] Phone: tel: fax: Referral ID Status Reason Start Date Expiration Date Visits Re quested Visits Authorized [id number] Closed 06/09/2025 09/08/2026 1 1 Reason for Visit * Reason Comments Back Pain Bilateral Hip Pain * Consultation (Urgent) - Authorized Specialty Diagnoses / Procedures Referred By Contac t Referred To Contact Neurosurgery Diagnoses Other intervertebral disc degeneration, lumbar region without mention of lumbar back pain or lower extremity pain Osteomyelitis of vertebra, lumbar region Dorsalgia, unspecified Ziggy Lopez MD [address] [place] [address] Phone: tel: fax: Bill Randhawa MD [address] [address] Phone: tel: fax: Referral ID Status Reason Start Date Expiration Date V isits Requested Visits Authorized [id number] Authorized 05/20/2025 08/19/2026 2 2 Encounter Details Date Type Department Care Team (Late st Contact Info) Description 06/09/2025 11:15 AM EDT Office Visit [facility] [address] [address] Bill Randhawa MD [address] [place] [id number] Chronic bilateral low back pain without sciatica (Primary Dx); Discitis of lumbar region Social History Tobacco Use Types Packs/Day Years Used Date Smoking Tobacco: Every Day Cigarettes Passive Smoke Exposure: Current Smokeless Tobacco: Never Tobacco Cessation:Ready to Q uit: Not Asked Alcohol Use Standard Drinks/Week Comments Never 0 (1 standard drink = 0.6 oz pur e alcohol) Sex and Gender Information Value Date Recorded Sex Assigned at Not on file Legal Sex Male 10:35 AM EDT Gender Identity Not on file Sexual Orientation Not on file documented as of this encounter Last Filed Vital Signs Vital Sign Reading Time Taken Comments Blood Pressure - - Pulse - - Temperature - - Respiratory Rate - - Oxygen Saturation - - Inhaled Oxygen Concentration - - Weight 95.8 kg (211 lb 4.8 oz) 06/09/2025 11:32 AM EDT Height 172.7 cm (5' 8 ) 06/09/2025 11:32 AM EDT Body Mass Index 32.13 06/09/2025 11:32 AM EDT documented in this encounter Progress Notes * Bill Randhawa MD - 06/09/2025 11:15 AM EDT NAME: FELICITA MATTHEW DOS: 06/09/2025 : 1970 PCP: Ziggy Lopez MD Chief Complaint: Chief Complaint Patient presents with Back Pain Bilateral Hip Pain History of Present Illness: 55 y.o. male Saw this 55-year-old gentleman in neurosurgical consultation he is a hard- working gentleman 55 and is accompanied by his family he reports about a 5-month history of back pain it began with a liftinginjury but overall has been quite miserable he denies claudication he has bilateral hip pain low back pain but denies any red flags such as fevers chills he does have a history of COPD and smoker's cough he is here for evaluation he takes Naprosyn PMHX Allergies: No Known Allergies Medications Current Outpatient Medications: magnesium oxide (MAG-OX) 400 MG tablet, Take 1 tablet by mouth Daily., Disp: , Rfl: naproxen (NAPROSYN) 500 MG tablet, Take 1 tablet by mouth 2 (Two) Times a Day With Meals., Disp: , Rfl: Emporium-3 Fatty Acids (fish oil) 1000 MG capsule capsule, Take by mouth Daily With Breakfast., Disp: , Rfl: rosuvastatin (CRESTOR) 10 MG tablet, Take 1 tablet by mouth Daily., Disp: , Rfl: Past Medical History: Past Medical History: Diagnosis Date Low back pain Lumbosacral disc disease Past Surgical History: History reviewed. No pertinent surgical history. Social Hx: Social History Tobacco Use Smoking status: Every Day Current packs/day: 0.50 Types: Cigarettes Passive exposure: Current Smokeless tobacco: Never Vaping Use Vaping status: Never Used Substance Use Topics Alcohol use: Never Drug use: Never Family Hx: Family History Family history unknown: Yes Review of Systems: Review of Systems Constitutional: Negative for activity change, appetite change, chills, diaphoresis, fatigue, fever and unexpected weight change. HENT: Negative for congestion, dental problem, drooling, ear discharge, ear pain, facial swelling, hearing loss, mouth sores, nosebleeds, postnasal drip, rhinorrhea, sinus pressure, sinus pain, sneezing, sore throat, tinnitus, trouble swallowing and voice change. Eyes: Negative for photophobia, pain, discharge, redness, itching and visual disturbance. Respiratory: Negative for apnea, cough, choking, chest tightness, shortness of breath, wheezing andstridor. Cardiovascular: Negative for chest pain, palpitations and leg swelling. Gastrointestinal: Negative for abdominal distention, abdominal pain, anal bleeding, blood in stool,constipation, diarrhea, nausea, rectal pain and vomiting. Endocrine: Negative for cold intolerance, heat intolerance, polydipsia, polyphagia and polyuria. Genitourinary: Negative for decreased urine volume, difficulty urinating, dysuria, enuresis, flank pain, frequency, genital sores, hematuria, penile discharge, penile pain, penile swelling, scrotal swelling, testicular pain and urgency. Musculoskeletal: Positive for back pain. Negative for arthralgias, gait problem, joint swelling, myalgias, neck pain and neck stiffness. Skin: Negative for color change, pallor, rash and wound. Allergic/Immunologic: Negative for environmental allergies, food allergies and immunocompromised state. Neurological: Negative for dizziness, tremors, seizures, syncope, facial asymmetry, speech difficulty, weakness, light-headedness, numbness and headaches. Hematological: Negative for adenopathy. Does not bruise/bleed easily. Psychiatric/Behavioral: Negative for agitation, behavioral problems, confusion, decreased concentration, dysphoric mood, hallucinations, self-injury, sleep disturbance and suicidal ideas. The patientis not nervous/anxious and is not hyperactive. I have reviewed this note template and all pertinent parts of the review of systems social, family history, surgical history and medication list Physical Examination: There were no vitals filed for this visit. General Appearance: Well developed, well nourished, well groomed, alert, and cooperative. Neurological examination: Neurological Exam He is wide-awake alert and follows commands His upper extremity strength is with stigmata of arthritis he has got good 5 out of 5 strength withno Lyndsey's Back is without lesions no suspender thoracic sensory level He is get decreased range of motion hips bilaterally but is strong overall toe and heel walk He has slight edema in his legs he has no clonus long tract signs or myelopathy He can ambulate and has excellent strength Psoriatic changes in the legs He is diffusely areflexic His legs are warm and well-perfused Review of Imaging/DATA: I personally viewed and interpreted MRI of the lumbar spine I looked at the films with my radiologycolleague and discussed the case personally with Dr. Willard. The patient has advanced degenerative changes at L3-4 but there is significant amount of STIR signal change at the 3 4 area with cavitationof the disc that appears most concerning for a chronic spondylodiscitis, this could be from infectious origin, posttraumatic or autoimmune Diagnoses/Plan: Mr. Matthew is a 55 y.o. male 1. 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 We will check a sed rate and a CRP P 3. I explained the importance of smoking cessation to the patient explaining that smoking decreasesthe efficacy of surgical therapies not to mention the general health risks. In addition to this when contemplating fusion surgeries smoking decreases fusion rates and leads to poor outcome, and contributes to complication rate. I explained the risk benefits and expected outcome of major elective surgery for their problem, complications from approach, and infection, the risk of neurologic implications after surgery as well as need for repeat surgeries and most importantly failure to achieve quality of life improvement fromthe surgery to the patient. I talked about the logic of biopsy from my standpoint if this could be performed permanent percutaneous I talked with Dr. Willard about that we will get him on the schedule for a percutaneous disc base biopsy In the meanwhile we will rebekah check 1. Sed rate CRP 2. Blood cultures 3. Referral to infectious disease tentatively 4. I explained the signs and symptoms look for necessitate a referral back I will see him back witha CT scan soon as well as an MRI with lumbar spine with contrast as well as a lumbar flexion-extension film documented in this encounter Plan of Treatment Upcoming Encounters Date Type Department Care Team (Late st Contact Info) Description 06/23/2025 2:15 PM EDT Office Visit [facility] [address] [facility] [address] [place] [address] Bill Randhawa MD [address] [facility] [address] [place] [address] 06/28/2025 10:10 AM EDT Hospital Encounter [facility] [address] [place] [id number] Agustín Willard MD [address] [id number] Discitis of lumbar region 06/28/2025 10:10 AM EDT - 06/28/2025 11:40 AM EDT Surgery [facility] [address] [place] [address] Agustín Willard MD [address] [address] IR fluoroscopy guided needle placement [30656 (CPT )] Scheduled Orders Name Type Priority Associated Diagnoses Orde r Schedule MRI Lumbar Spine With & Without Contrast Imaging STAT Chronic bilateral low back pain without sciatica Expected: 06/10/2025, Expires: 09/09/2026 CT Lumbar Spine Without Contrast Imaging STAT Chronic bilateral low back pain without sciatica Expected: 06/10/2025, Expires: 09/09/2026 XR Spine Lumbar Complete With Flex & Ext Imaging Routine Chronic bilateral low back pain without sciatica Expected: 06/12/2025, Expires: 09/09/2026 Scheduled Referrals Name Type Priority Associated Diagnoses Order Schedule Ambulatory Referral to Infectious Disease Outpatient Referral Routine Discitis of lumbar region Ordered: 06/09/2025 documented as of this encounter Results * (ABNORMAL) C-reactive Protein (06/09/2025 12:32 PM EDT) C-Reactive Protein 1.35(H) 0.00 - 0.50 mg/dL 06/09/2025 1:22 PM EDT [facility] Blood Venipuncture / Unknown 06/09/2025 12:32 PM EDT 06/09/2025 12:32 PM EDT Bill Randhawa MD LAB BLOOD ORDERABLES Final Result Performing Organization Address City/[facility]/ZIP Co de Phone Number [facility]
[address] [place] [address], [place] [phone] * (ABNORMAL) Sedimentation Rate (06/09/2025 12:32 PM EDT) Sed Rate 31(H) 0 - 20 mm/hr 06/09/2025 1:09 PM EDT [facility] Blood Venipuncture / Unknown 06/09/2025 12:32 PM EDT 06/09/2025 12:32 PM EDT Bill Randhawa MD LAB BLOOD ORDERABLES Final Result Performing Organization Address [facility] Co de Phone Number [facility]
[address] [place] [address], documented in this encounter Visit Diagnoses Diagnosis Chronic bilateral low back pain without sciatica- Primary Discitis of lumbar region Other and unspecified disc disorder of lumbar region Discitis of lumbar region- Primary Other and unspecified disc disorder of lumbar region Discitis of lumbar region Other and unspecified disc disorder of lumbar region documented in this encounter Care Teams Automotive Fuel Injection Servicer Relationship Specialty Start Date End Date Ziggy Lopez MD [address] [place] [address] PCP - General Family Medicine 06/03/25 documented as of this encounter
--- OUTSIDE RECORDS SUMMARY | 2025-06-09 13:30 | XMS_ITS | Encounter Summary ---
[facility] Address [address] [place] [id number] Care Team Providers Care Dairy Machine Operator Farmworker Name Role Phone Ziggy Lopez MD Primary Care Provider +1- [phone] Encounter Details Date Type Department Care Team (Late st Contact Info) Description 06/09/2025 1:30 PM EDT Lab [facility] [address] [place] [address] Chronic bilateral low back pain without sciatica Social History Tobacco Use Types Packs/Day Years Used Date Smoking Tobacco: Every Day Cigarettes Passive Smoke Exposure: Current Smokeless Tobacco: Never Alcohol Use Standard Drinks/Week Comments Never 0 (1 standard drink = 0.6 oz pur e alcohol) Sex and Gender Information Value Date Recorded Sex Assigned at Not on file Legal Sex Male 10:35 AM EDT Gender Identity Not on file Sexual Orientation Not on file documented as of this encounter Plan of Treatment Upcoming Encounters Date Type Department Care Team (Late st Contact Info) Description 06/23/2025 2:15 PM EDT Office Visit [facility] [address] [phone] Bill Randhawa MD [address] [address] 06/28/2025 10:10 AM EDT Hospital Encounter [facility] [address] [place] [address] Agustín Willard MD [address] [place] [address] Discitis of lumbar region 06/28/2025 10:10 AM EDT - 06/28/2025 11:40 AM EDT Surgery [facility] PR[facility] MARKETER [address] [place] [address] Agustín Willard MD [address] [facility] [address] [place] [address] IR fluoroscopy guided needle placement [95032 (CPT )] documented as of this encounter Procedures Procedure Name Priority Date/Time Associated Diagnosis Comments SEDIMENTATION RATE STAT 06/09/2025 12 :32 PM EDT Chronic bilateral low back pain without sciatica C-REACTIVE PROTEIN STAT 06/09/2025 12 :32 PM EDT Chronic bilateral low back pain without sciatica documented in this encounter Results * (ABNORMAL) C-reactive Protein (06/09/2025 12:32 PM EDT) C-Reactive Protein 1.35(H) 0.00 - 0.50 mg/dL 06/09/2025 1:22 PM EDT [facility] Blood Venipuncture / Unknown 06/09/2025 12:32 PM EDT 06/09/2025 12:32 PM EDT Bill Randhawa MD LAB BLOOD ORDERABLES Final Result [facility]
[address] [place] [address], * (ABNORMAL) Sedimentation Rate (06/09/2025 12:32 PM EDT) Sed Rate 31(H) 0 - 20 mm/hr 06/09/2025 1:09 PM EDT [facility] Blood Venipuncture / Unknown 06/09/2025 12:32 PM EDT 06/09/2025 12:32 PM EDT us Bill Randhawa MD LAB BLOOD ORDERABLES Final Result [facility]
[address] [place] [address], documented in this encounter Visit Diagnoses Diagnosis Chronic bilateral low back pain without sciatica Discitis of lumbar region- Primary Other and unspecified disc disorder of lumbar region Discitis of lumbar region Other and unspecified disc disorder of lumbar region documented in this encounter Care Teams Dairy Machine Operator Farmworker Relationship Specialty Start Date End Date Ziggy Lopez MD [address] [place] [address] PCP - General Family Medicine 06/03/25 documented as of this encounter
--- NOTE | 2025-06-16 09:56 | MR_ITS ---
FINAL REPORT TECHNIQUE: Multiplanar and multisequence MR imaging was performed through the lumbar spine before and after contrast administration. CLINICAL HISTORY: CHRONIC SYLVIAN LBPW/OUT SCIATICA. abnormal mr 05-18-25. low back pain [id number] COMPARISON: 05/18/2025 FINDINGS: The vertebral bodies are normally aligned. There is again noted to be abnormal bone marrow signal intensity and abnormal enhancement of the L3 and L3-4 vertebral bodies. Irregularity at the endplates of the L3 and L4 is similar to the prior study. There does not appear to have been further endplate destruction since the previous exam. Remaining bone marrow signal intensity is preserved. The cord terminates at L1. There is normal signal within the distal cord. Right renal cyst is present. There is abnormal signal intensity in the paraspinal tissues at L3-4, but no paraspinal abscess identified. L1-L2: Unremarkable. L2-L3: Unremarkable. L3-L4: No epidural abscess. Mild central canal stenosis related to discitis. The degree of central canal stenosis is slightly improved. There also continues to be bilateral neuroforaminal narrowing which is unchanged. L4-L5: Annular disc bulge with degenerative endplate changes and facet osteoarthropathy. No central canal stenosis. Moderate bilateral neuroforaminal narrowing is unchanged. L5-S1: Annular disc bulge. No central canal stenosis. Mild bilateral neuroforaminal narrowing is stable. IMPRESSION: Stable osteomyelitis/discitis at L3-4 with no further endplate destruction and no epidural abscess. Mild degenerative disease at additional levels as above. Reviewed, Interpreted and Dictated by Leeann Mathis MD Transcribed by Kena Flower Authenticated and [facility]
--- OUTSIDE RECORDS SUMMARY | 2025-06-16 10:06 | XMS_ITS | Clinical Summary ---
[facility] Organization [facility] Address [address] [place] [address] Care Team Providers Care Curriculum Designer Name Role Phone Ziggy Lopez MD Primary Care Provider [phone]- [phone] Allergies No known active allergies Medications rosuvastatin (CRESTOR) 10 MG tablet Take 1 tablet by mouth Daily. 05/31/2025 Active naproxen (NAPROSYN) 500 MG tablet Take 1 tablet by mouth 2 (Two) Times a Day With Meals. 02/10/2025 Active magnesium oxide (MAG-OX) 400 MG tablet Take 1 tablet by mouth Daily. Active Benton-3 Fatty Acids (fish oil) 1000 MG capsule capsule Take by mouth Daily With Breakfast. Active Active Problems Problem Noted Date Diagnosed Date Discitis of lumbar region 06/09/2025 Encounters Date Type Department Care Team Description 06/09/2025 1:30 PM EDT Lab [facility] [address] [place] [address] Chronic bilateral low back pain without sciatica 06/09/2025 11:15 AM EDT Office Visit [facility] [address] [facility] [address] [place] [phone] Bill Randhawa MD Chronic bilateral low back pain without sciatica (Primary Dx); Discitis of lumbar region 06/09/2025 Travel from Last 3 Months Social History Tobacco Use Types Packs/Day Years [...] on file Sexual Orientation Not on file Last Filed Vital Signs Vital Sign Reading Time Taken Comments Blood Pressure - - Pulse - - Temperature - - Respiratory Rate - - Oxygen Saturation - - Inhaled Oxygen Concentration - - Weight 95.8 kg (211 lb 4.8 oz) 06/09/2025 11:32 AM EDT Height 172.7 cm (5' 8 ) 06/09/2025 11:32 AM EDT Body Mass Index 32.13 06/09/2025 11:32 AM EDT Plan of Treatment Upcoming Encounters Date Type Department Care Team (Late st Contact Info) Description 06/23/2025 2:15 PM EDT Office Visit [facility] [address] [phone] [place] [address] [place] [phone] 06/28/2025 10:10 AM EDT Hospital Encounter [facility] [address] [place] [phone] Agustín Willard MD [address] [place] [address] [phone] Discitis of lumbar region 06/28/2025 10:10 AM EDT - 06/28/2025 11:40 AM EDT Surgery [facility] [address] [place] [address] Agustín Willard MD [address] [place] [id number] IR fluoroscopy guided needle placement [64985 (CPT )] Health Maintenance Due Date Last Done Comments Pneumococcal Vaccine 50+ (1 of 2 - PCV) 02/15/1987 03/06/2010 TDAP/TD VACCINES (1 - Tdap) 05/26/2008 05/25/2008, 0 09/01/1999 COLOGUARD 02/15/2013 COLON CANCER SCREENING 5 YEA R SIGMOIDOSCOPY 02/15/2013 COLONOSCOPY 02/15/2013 COLORECTAL CANCER SCREENING 02/15/2013 CT COLONOGRAPHY 02/15/2013 FECAL OCCULT BLOOD TEST 02/15/2013 FIT Testing (1 year) 02/15/2013 ZOSTER VACCINE (1 of 2) 02/15/2018 INFLUENZA VACCINE 04/01/2025 08/01/2013, , 05/02/2010, Additional history exists ANNUAL PHYSICAL 06/09/2025 HEPATITIS C SCREENING 06/09/2025 Procedures Procedure Name Priority Date/Time Associated Diagnosis Comments C-REACTIVE PROTEIN STAT 06/09/2025 12 :32 PM EDT Chronic bilateral low back pain without sciatica SEDIMENTATION RATE STAT 06/09/2025 12 :32 PM EDT Chronic bilateral low back pain without sciatica MRI OUTSIDE FILMS Routine 05/18/2025 12: 00 AM EDT SCANNED - IMAGING 05/18/2025 SCANNED - IMAGING 04/27/2025 from Last 3 Months Results * (ABNORMAL) Sedimentation Rate (06/09/2025 12:32 PM EDT) Pathologist [facility] Sed Rate 31(H) 0 - 20 mm/hr 06/09/2025 1:09 PM EDT [facility] Blood Venipuncture / Unknown 06/09/2025 12:32 PM EDT 06/09/2025 12:32 PM EDT Bill Randhawa MD LAB BLOOD ORDERABLES Final Result [facility]
[address] [place] [address], * (ABNORMAL) C-reactive Protein (06/09/2025 12:32 PM EDT) Pathologist [facility] C-Reactive Protein 1.35(H) 0.00 - 0.50 mg/dL 06/09/2025 1:22 PM EDT [facility] Blood Venipuncture / Unknown 06/09/2025 12:32 PM EDT 06/09/2025 12:32 PM EDT Bill Randhawa MD LAB BLOOD ORDERABLES Final Result [facility]
[address] [place] [address], * IMAGING SCANNED (05/18/2025) Only the most recent of2 resultswithin the time period is included. Anatomical Region Laterality Modality Radiographic Mary Jo ging [facility] IMG DIAGNOSTIC IMAGING ORDERA BLES Final Result * MRI Outside Films (05/18/2025 12:00 AM EDT) Narrative SYSTEMGENERATED, DOCUMENTATION - 06/09/2025 11:38 AM EDT This procedure was auto-finalized with no dictation required. Bill Randhawa MD IMG MRI ORDERABLES Final R esult from Last 3 Months Insurance [employer] [place] Care Teams Curriculum Designer Relationship Specialty Start Date End Date Ziggy Lopez MD [address] [phone] PCP - General Family Medicine 06/03/25
--- OUTSIDE RECORDS SUMMARY | 2025-06-16 10:06 | XMS_ITS | Clinical Summary ---
Author Organization [facility] Address [address] [place] [address] Phone Care Team Providers Care Board Handler Name Role Phone Unavailable Primary Care Provider Unavailabl e Allergies No known active allergies Medications naproxen (NAPROSYN) 500 mg Oral Tablet Take 1 Tab by mouth every 12 hours. 20 Tab 10/03/2017 Active Medical History Medical History Date Comments [place] (myocardial infarction) (HCC) High cholesterol Social History [...] patient's age to complete this topic Insurance [employer] AA
--- OUTSIDE RECORDS SUMMARY | 2025-06-16 10:06 | XMS_ITS | Encounter Summary ---
[facility] [address] [place] [address] Care Team Providers Care Journeyman Pipefitter Name Role Phone Ziggy Lopez MD Primary Care Provider [phone]- [phone] Encounter Details Date Type Department Care Team (Latest Contact Info) Description 06/09/2025 Travel Social History Tobacco Use Types Packs/Day Years [...] Description 06/23/2025 2:15 PM EDT Office Visit [facility] [address] [phone] Bill Randhawa MD [address] [address] 06/28/2025 10:10 AM EDT Hospital Encounter [facility] [address] [place] [phone] Agustín Willard MD [address] [address] Discitis of lumbar region 06/28/2025 10:10 AM EDT - 06/28/2025 11:40 AM EDT Surgery [facility] [address] [place] [phone] Agustín Willard MD [address] [facility] [address] [place] [id number] IR fluoroscopy guided needle placement [76382 (CPT )] documented as of this encounter Visit Diagnoses Not on filedocumented in this encounter Care Teams Journeyman Pipefitter Relationship Specialty Start Date End Date Ziggy Lopez MD [address] [place] [address] PCP - General Family Medicine 06/03/25 documented as of this encounter
[2025-06-16] MEDS: GADOTERIDOL INJ 20ML SYRINGE 19 ML IV (10:42)
[2025-06-16] MEDS: SODIUM CHLORIDE 0.9% 10ML SYR (RAD ONLY) 10 ML IV (10:42)
== END 2025-06-16 23:59 | disposition home or self-care (01) ==
LOC: RAD 09:54
PROVIDERS: PCP Family Medicine; Visit Provider Neurological Surgery
DX: M46.26 Osteomyelitis of vertebra, lumbar region (principal); M46.46 Discitis, unspecified, lumbar region
CPT/HCPCS: 72158; A9576